=== PATIENT | female | born 1935 | race Caucasian/White ===

== ENCOUNTER 2020-03-29 11:12 | Outpatient (REF) | payer MEDICARE, SELFPAY | END 2020-03-29 11:13 | disposition home or self-care (01) | LOC: HO.WFDLDS 11:12 | PROVIDERS: Visit Provider Internal Medicine | DX: Z20.828 Contact with and (suspected) exposure to other viral communicable diseases (principal) | CPT/HCPCS: C9803; U0003 ==

== ENCOUNTER 2023-10-19 09:01 | Outpatient (AMB) | payer MEDICARE, SELFPAY ==
[2023-10-19 09:55] VITALS: BP 191/81; PULSE 60; RESP 12; O2SAT 98; BMI 25.8
--- NOTE | 2023-10-19 09:55 | MHC.PC.OV ---
Vital Signs 10/19/23 09:55 Height 4 ft 9.5 in Weight 121 lb 4 oz BMI 25.8 BP 191/81 H Blood Pressure Location Lt brachial Position Sitting Respiration 12 Pulse 60 Pulse Source Pulse Oximeter Pulse Oximetry (%) 98 Oxygen Delivery Method Room Air Intake Visit Reasons: ELLA from [facility] Intake Note: Patient is here for transfer of care from [facility] to [facility]. Patient reports she has some medications that need refills- and her medications are sent to either [facility] mail order or [facility] locally. COLONOSCOPY: years ago, incomplete FLU VACCINE: last year TETANUS: June this year I think SHINGLES: no Algology Teacher Required: No Accompanied by: Spouse Allergies No Known Allergies Allergy (Verified 10/19/23 09:57) Tobacco use date assessed: 10/19/23 Fall risk assessment: No Falls in past year Last assessed Fall Risk: 10/19/23 Dental Screening Dental Screen Date: 10/19/23 Did you have a dental visit in the last 12 months?: No Did you have a dental problem in the last 6 months where you did not have access to dental care?: No Was dental information given to patient?: Patient declined HPI HPI Comments History of Present Illness Details The patient is a 88-year-old female with a past medical history of type 2 diabetes, hypertension, osteopenia presenting for follow-up Type 2 diabetes: Controlled off medications. Eye exam is up-to-date. Follows with Dr. Aldana podiatry. Microalbumin has been negative Cardiovascular: On amlodipine 10 mg daily, lisinopril 40 mg daily, atenolol 100 mg daily, hydralazine. She had dry mouth clonidine though in prove blood pressure control. She had a stress test performed which was nondiagnostic due to underlying left bundle-branch block however declined cardiology referral Osteoporosis: On calcium and vitamin-D. She has increased left hip pain over the past few years. She takes Tylenol as needed Bone density exam is up-to-date and consistent with osteoporosis Mammo is up-to-date. She has one next month for prior abnormal with u/s f/up unremarkable ROS CONSTITUTIONAL: Denies weight loss, fever and chills. HEENT: Denies changes in vision and hearing. RESPIRATORY: Denies SOB and cough. CV: Denies palpitations and CP GI: Denies abdominal pain, nausea, vomiting and diarrhea. : Denies dysuria and urinary frequency. MSK: Denies new myalgia and joint pain. SKIN: Denies rash and pruritus. NEUROLOGICAL: Denies headache PSYCHIATRIC: Denies recent changes in mood. PHYSICAL EXAM: GENERAL: Alert and oriented x 3. NAD EYES: EOMI. Anicteric. HENT: Moist mucous membranes. No scleral icterus. No cervical lymphadenopathy. LUNGS: Clear to auscultation bilaterally. CARDIOVASCULAR: Regular rate and rhythm. No murmur. No JVD. ABDOMEN: Soft, non-tender +bs EXTREMITIES: No edema. Non-tender. SKIN: No rashes or lesions. Warm. NEUROLOGIC: No focal neurological deficits. CN II-XII grossly intact PSYCHIATRIC: Cooperative. Appropriate mood and affect [facility] Medical History History of IBS Eczema Sinusitis Diabetes History of onychomycosis Hypertension [place] of toe Surgical History History of hysterectomy History of tonsillectomy Family History Other No pertinent family history Social History Household Members: Spouse Housing: House Alcohol intake: never Patient Tobacco Use Status: Never used Tobacco e-Cigarette/Vaping Use: Never Used service: No Current occupational status: retired Cognitive needs: No Hearing needs: Yes (blocked ears) Vision needs: Yes (wears glasses) Questionnaire PHQ-9 Over the last 2 weeks, how often have you been bothered by any of the following problems? 1. Little interest or pleasure in doing things: not at all 2. Feeling down, depressed, or hopeless: not at all 3. Trouble falling or staying asleep, or sleeping too much: not at all 4. Feeling tired or having little energy: not at all 5. Poor appetite or overeating: more than half the days 6. Feeling bad about yourself - or that you are a failure or have let yourself or your family down: not at all 7. Trouble concentrating on things, such as reading the newspaper or watching television: not at all 8. Moving or speaking so slowly that other people could have noticed. Or the opposite - being so fidgety or restless that you have been moving around a lot more than usual: not at all 9. Thoughts that you would be better off or of hurting yourself in some way: not at all Total score: 2 Depression Screening Interpretation: Negative Depression Screening Done: Yes 01232 - PHQ-9 Billing: Yes Source: Developed by Drs. Mikey Medina, Yudi Matta, Kapil Nj and colleagues, with an educational cleo from [employer] Thrive Questionnaire Date Thrive assessed: 10/19/23 I am a: Patient What is your living situation today?: I have a steady place to live Within the past 12 months, did the food you bought not last and you didn't have the money to get more?: Never true Within the past 12 months, did you worry whether your food would run out before you got money to buy more?: Never true Do you have trouble paying for medicines?: No Do you have trouble getting transportation to medical appointments?: No Do you have trouble taking care of your child, family member or friend?: Yes Do you have trouble with day-to-day activities such as bathing, preparing meals, shopping, managing finances, etc.?: Yes Are you currently unemployed and looking for a job?: No Are you interested in more education?: No Please select the resources that you would like help with: Care for elder or disabled and Daily support Currently or been in a relationship where the following occur: No concerns reported THRIVE Score: 0 AUDIT C Alcohol Use Questionnaire (AUDIT-C) 1. How often do you have a drink containing alcohol?: Never 3. How often do you have six or more drinks on one occasion?: Never Total Score: 0 KATHIA-7 AMB Questionnaire KATHIA-7 Date KATHIA - 7 assessed: 10/19/23 Feeling nervous, anxious, or on edge: 1 = Several days Not being able to stop or control worryin = Several days Worrying too much about different things: 1 = Several days Trouble relaxin = Several days Being so restless that it is hard to sit still: 0 = Not at all Becoming easily annoyed or irritable: 0 = Not at all Feeling afraid as if something awful might happen: 0 = Not at all Total KATHIA-7 score (0-4 normal; 5-9 mild; 10-14 moderate; 15-21 severe): 4 Source: Developed by Drs. Mikey Medina, Yudi Matta, Kapil Nj and colleagues, with an educational cleo from [employer] KATHIA-7 Assessment Billing KATHIA-7 Assessment Tool: KATHIA-7 Assessment 13068 Physical exam (Primary Care) Vital Signs: Last Vital Signs Pulse 60 10/19/23 09:55 Resp 12 10/19/23 09:55 BP 191/81 H 10/19/23 09:55 Pulse Ox 98 10/19/23 09:55 Oxygen Delivery Method Room Air 10/19/23 09:55 BMI result Body Mass Index 25.8 Tobacco/Smoking Status: Tobacco use Status Tobacco use date assessed 10/19/23 10/19/23 10:08 Patient Tobacco Use Status Never used Tobacco 10/19/23 10:08 e-Cigarette/Vaping Use Never Used 10/19/23 10:08 PHQ-9: PHQ-9 Score PHQ-9: Total score 2 10/19/23 10:35 Depression Screening Interpretation: Negative Thrive Assessment: Date of Thrive Assessment Date Thrive assessed 10/19/23 10/19/23 10:08 Currently or been in a relationship where the following occur: No concerns reported Assessment and Plan Assessment & Plan (1) Osteoporosis: Code(s): M81.0 - Age-related osteoporosis without current pathological fracture Qualifiers: Osteoporosis type: age-related Presence of current pathological fracture: without current pathological fracture Qualified Code(s): M81.0 - Age-related osteoporosis without current pathological fracture Plan: Declines bisphosphanate therapy. continue calcium & vitamin D (2) Hypertension: Code(s): I10 - Essential (primary) hypertension Qualifiers: Hypertension type: primary hypertension Qualified Code(s): I10 - Essential (primary) hypertension Plan: Quite elevated today. increase hydralazine from 25mg BID to 50mg BID (3) Diabetes: Code(s): E11.9 - Type 2 diabetes mellitus without complications Qualifiers: Diabetes mellitus type: type 2 Diabetes mellitus halfway insulin use: without halfway use Diabetes mellitus complication status: with ophthalmic complications Diabetes mellitus complication detail: with cataract Qualified Code(s): E11.36 - Type 2 diabetes mellitus with diabetic cataract Plan: controlled. check labs Orders: Orders Complete Blood Count Auto Diff Today E11.9 - Type 2 diabetes mellitus without complications, I10 - Essential (primary) hypertension, M81.0 - Age-related osteoporosis without current pathological fracture Comprehensive Met. Panel Today E11.9 - Type 2 diabetes mellitus without complications, I10 - Essential (primary) hypertension, M81.0 - Age-related osteoporosis without current pathological fracture Hemoglobin A1c Today E11.9 - Type 2 diabetes mellitus without complications, I10 - Essential (primary) hypertension, M81.0 - Age-related osteoporosis without current pathological fracture Medications: New coenzyme Q10 (Ultra CoQ10) 75 mg PO DAILY 30 caps 0RF fluocinonide 0.05% 1 appl topical BID 30 grams 0RF lisinopril 40 mg PO DAILY 30 tabs 0RF mupirocin 2% 1 appl topical BID 22 grams 0RF lancets (Accu-Chek Softclix Lancets) As directed 100 ea 0RF hydralazine 50 mg PO BID 180 tabs 3RF blood sugar diagnostic once daily fasting 100 ea 3RF E11.9 - Type 2 diabetes mellitus without complications amlodipine 10 mg PO DAILY 30 tabs 0RF atenolol 100 mg PO DAILY 30 tabs 0RF betamethasone dipropionate 0.05% 1 appl topical BID PRN 45 grams 0RF skin irritation calcium carbonate-vitamin D3 600 mg-20 mcg (800 unit) (Caltrate 600 plus D) 1 tab PO BID 60 tabs 0RF magnesium oxide 400 mg PO DAILY 30 caps 0RF blood-glucose meter (Accu-Chek Guide Glucose Meter) As directed 1 ea 0RF blood sugar diagnostic once daily fasting 100 ea 3RF E11.9 - Type 2 diabetes mellitus without complications Coding Level of Care Code Est Pt Level 4 (36347) Diagnoses Age-related osteoporosis without current pathological fracture M81.0 Osteoporosis type: age-related Presence of current pathological fracture: without current pathological fracture Primary hypertension I10 Hypertension type: primary hypertension Type 2 diabetes mellitus with diabetic cataract, without long-term current use of insulin E11.36 Diabetes mellitus type: type 2 Diabetes mellitus halfway insulin use: without halfway use Diabetes mellitus complication status: with ophthalmic complications Diabetes mellitus complication detail: with cataract Additional Codes KATHIA-7 Assessment Billing - KATHIA-7 Assessment Tool: KATHIA-7 Assessment [id number] ([id number])
== END 2023-10-19 10:52 | disposition home or self-care (01) ==
PROVIDERS: Visit Provider Internal Medicine
DX: M81.0 Age-related osteoporosis without current pathological fracture (principal); I10 Essential (primary) hypertension; E11.36 Type 2 diabetes mellitus with diabetic cataract
CPT/HCPCS: 99214

== ENCOUNTER 2023-10-19 11:14 | Outpatient (REF) | payer MEDICARE, SELFPAY ==
[2023-10-19 13:53] LABS: MANUAL DIFF FLAG NO
[2023-10-19 13:59] LABS: Basophils Absolute Auto 0.1 X10*3/uL (0.0-0.2); Basophils Percent Auto 1.3 % (0-2); Eosinophils Absolute Auto 0.3 X10*3/uL (0.0-0.4); Eosinophils Percent Auto 5.6 % (0-4); Hematocrit 42.2 % (37.0-47.0); Hemoglobin 14.5 g/dl (12.0-16.0); Imm Gran Abs Auto 0.02 X10*3/uL (0.00-0.03); Imm Gran Pct Auto 0.4 % (0.0-0.4); Lymphocytes Absolute Auto 1.4 X10*3/uL (1.2-4.9); Lymphocytes Percent Auto 25.7 % (20-40); Mean Corpuscular HGB Conc 34.4 g/dl (31.0-35.0); Mean Corpuscular Hemoglobin 29.3 pg (27.0-33.0); Mean Corpuscular Volume 85.3 fL (80.0-98.0); Mean Platelet Volume 11.2 fL (9.4-12.3); Monocytes Absolute Auto 0.8 X10*3/uL (0.1-1.2); Monocytes Percent Auto 13.7 % (2-11); Neutrophils Percent Auto 53.3 % (45-73); Platelet Count 220 X10*3/uL (160-400); Red Blood Count 4.95 X10*6/uL (4.20-5.50); Red Cell Distribution Width 13.4 % (11.0-16.0); White Blood Count 5.5 X10*3/uL (4.8-10.8)
[2023-10-19 14:10] LABS: Alanine Aminotransferase 14 U/L (0-31); Albumin Level 4.4 g/dL (3.5-5.0); Alkaline Phosphatase 72 U/L (39-117); Anion Gap 12 (12-20); Aspartate Amino Transferase 17 U/L (5-31); Bilirubin Total 0.4 mg/dL (0.0-1.0); Blood Urea Nitrogen 13 mg/dL (9-16); Calcium 10.3 mg/dL (8.4-10.2); Carbon Dioxide 28 mmol/L (22-29); Chloride 108 mmol/L (96-108); Estimated Glomerular Filt Rate > 60; Glucose Random 70 mg/dL (60-115); Potassium 3.7 mmol/L (3.3-5.1); Sodium 144 mmol/L (135-145); Total Protein 7.5 g/dL (6.5-8.0)
[2023-10-19 14:14] LABS: Estimated Average Glucose 117 mg/dL; Hemoglobin A1c % 5.7 % (<6.0)
== END 2023-10-19 11:15 | disposition home or self-care (01) ==
LOC: HO.WFDLDS 11:14
PROVIDERS: Visit Provider Internal Medicine
DX: M81.0 Age-related osteoporosis without current pathological fracture (principal); I10 Essential (primary) hypertension; E11.9 Type 2 diabetes mellitus without complications
CPT/HCPCS: 36415; 80053; 83036; 85025

== ENCOUNTER 2024-01-06 09:36 | Outpatient (RCR) | payer MEDICARE, SELFPAY | END 2024-03-03 13:55 | disposition home or self-care (01) | LOC: HO.WCC 09:36 | PROVIDERS: PCP Internal Medicine; Visit Provider Surgery | DX: Z09 Encounter for follow-up examination after completed treatment for conditions other than malignant neoplasm (principal); I87.301 Chronic venous hypertension (idiopathic) without complications of right lower extremity; E11.9 Type 2 diabetes mellitus without complications; Z87.2 Personal history of diseases of the skin and subcutaneous tissue | CPT/HCPCS: 11042; 29580; 97597; 99212 ==

== ENCOUNTER 2024-01-31 09:37 | Outpatient (AMB) | payer MEDICARE, SELFPAY ==
[2024-01-31 09:44] VITALS: BP 148/62; PULSE 69; O2SAT 98; BMI 26.7
--- NOTE | 2024-01-31 09:48 | A.OFFPC_ITS ---
Vital Signs 01/31/24 09:44 Height 4 ft 9.5 in Weight 125 lb 6 oz BMI 26.7 BP 148/62 H Blood Pressure Location Lt brachial Position Sitting Pulse 69 Pulse Source Pulse Oximeter Pulse Oximetry (%) 98 Oxygen Delivery Method Room Air Intake Visit Reasons: PURSE SEINING HAND-Establish Care Allergies No Known Allergies Allergy (Verified 01/31/24 09:48) Tobacco use date assessed: 01/31/24 Fall risk assessment: No Falls in past year Last assessed Fall Risk: 01/31/24 Dental Screening Dental Screen Date: 01/31/24 Did you have a dental visit in the last 12 months?: No Did you have a dental problem in the last 6 months where you did not have access to dental care?: No Was dental information given to patient?: Patient declined HPI HPI Comments 2 History of Present Illness Details The patient is a 88-year-old female with a past medical history of type 2 diabetes, hypertension, osteopenia presenting for follow-up Type 2 diabetes: Controlled off medications. Eye exam is up-to-date. Follows with Dr. Bhavani Abdul podiatry. Microalbumin has been negative. Had recent cour se of antibiotics and wound care for posterior right leg wound Cardiovascular: On amlodipine 10 mg daily, lisinopril 40 mg daily, atenolol 100 mg daily, hydralazine. She had dry mouth clonidine though in prove blood pressure control. She had a stress test performed which was nondiagnostic due to underlying left bundle-branch block however declined cardiology referral Osteoporosis: On calcium and vitamin-D. Chronic hip and knee pain. She takes Tylenol as needed Bone density exam & Mammo upcoming. Requests order for [place] ROS CONSTITUTIONAL: Denies weight loss, fever and chills. HEENT: Denies changes in vision and hearing. RESPIRATORY: Denies SOB and cough. CV: Denies palpitations and CP GI: Denies abdominal pain, nausea, vomiting and diarrhea. : Denies dysuria and urinary frequency. MSK: Denies new myalgia and joint pain. SKIN: Denies rash and pruritus. NEUROLOGICAL: Denies headache PSYCHIATRIC: Denies recent changes in mood. PHYSICAL EXAM: GENERAL: Alert and oriented x 3. NAD EYES: EOMI. Anicteric. HENT: Moist mucous membranes. No scleral icterus. No cervical lymphadenopathy. LUNGS: Clear to auscultation bilaterally. CARDIOVASCULAR: Regular rate and rhythm. No murmur. No JVD. ABDOMEN: Soft, non-tender +bs EXTREMITIES: No edema. Non-tender. SKIN: Right posterior leg redness. Left posterior leg redness NEUROLOGIC: No focal neurological deficits. CN II-XII grossly intact PSYCHIATRIC: Cooperative. Appropriate mood and affect [facility] Medical History History of IBS Eczema Sinusitis Diabetes History of onychomycosis Hypertension [place] of toe Surgical History History of hysterectomy History of tonsillectomy Family History Other No pertinent family history Social History Household Members: Spouse Housing: House Alcohol intake: never Patient Tobacco Use Status: Never used Tobacco e-Cigarette/Vaping Use: Never Used service: No Current occupational status: retired Cognitive needs: No Hearing needs: Yes (blocked ears) Vision needs: Yes (wears glasses) Questionnaire PHQ-9 Over the last 2 weeks, how often have you been bothered by any of the following problems? 1. Little interest or pleasure in doing things: not at all 2. Feeling down, depressed, or hopeless: not at all 3. Trouble falling or staying asleep, or sleeping too much: not at all 4. Feeling tired or having little energy: not at all 5. Poor appetite or overeating: more than half the days 6. Feeling bad about yourself - or that you are a failure or have let yourself or your family down: not at all 7. Trouble concentrating on things, such as reading the newspaper or watching television: not at all 8. Moving or speaking so slowly that other people could have noticed. Or the opposite - being so fidgety or restless that you have been moving around a lot more than usual: not at all 9. Thoughts that you would be better off or of hurting yourself in some way: not at all Total score: 2 Depression Screening Interpretation: Negative (neg) Depression Screening Done: Yes 63999 - PHQ-9 Billing: Yes Source: Developed by Drs. Mikey Medina, YudiKapil Caballero and colleagues, with an educational cleo from [employer]. Thrive Questionnaire Date Thrive assessed: 01/31/24 I am a: Patient What is your living situation today?: I have a steady place to live Within the past 12 months, did the food you bought not last and you didn't have the money to get more?: Never true Within the past 12 months, did you worry whether your food would run out before you got money to buy more?: Never true Do you have trouble paying for medicines?: No Do you have trouble getting transportation to medical appointments?: No Do you have trouble paying your heating and electricity bill?: No Do you have trouble taking care of your child, family member or friend?: Yes Do you have trouble with day-to-day activities such as bathing, preparing meals, shopping, managing finances, etc.?: Yes Are you currently unemployed and looking for a job?: No Are you interested in more education?: No Please select the resources that you would like help with: Care for elder or disabled and Daily support Currently or been in a relationship where the following occur: No concerns reported THRIVE Score: 0 AUDIT C Alcohol Use Questionnaire (AUDIT-C) 1. How often do you have a drink containing alcohol?: Never 3. How often do you have six or more drinks on one occasion?: Never Total Score: 0 KATHIA-7 AMB Questionnaire KATHIA-7 Date KATHIA - 7 assessed: 01/31/24 Feeling nervous, anxious, or on edge: 1 = Several days Not being able to stop or control worryin = Several days Worrying too much about different things: 1 = Several days Trouble relaxin = Several days Being so restless that it is hard to sit still: 0 = Not at all Becoming easily annoyed or irritable: 0 = Not at all Feeling afraid as if something awful might happen: 0 = Not at all Total KATHIA-7 score (0-4 normal; 5-9 mild; 10-14 moderate; 15-21 severe): 4 Source: Developed by Drs. Mikey Medina, Kapil Lindsay and colleagues, with an educational cleo from [employer]. KATHIA-7 Assessment Billing KATHIA-7 Assessment Tool: KATHIA-7 Assessment [id number] Physical exam (Primary Care) Vital Signs: Last Vital Signs Pulse 69 01/31/24 09:44 BP 148/62 H 01/31/24 09:44 Pulse Ox 98 01/31/24 09:44 Oxygen Delivery Method Room Air 01/31/24 09:44 BMI result Body Mass Index 26.7 Tobacco/Smoking Status: Tobacco use Status Tobacco use date assessed 01/31/24 01/31/24 09:53 Patient Tobacco Use Status Never used Tobacco 01/31/24 09:53 e-Cigarette/Vaping Use Never Used 01/31/24 09:53 PHQ-9: PHQ-9 Score PHQ-9: Total score 2 01/31/24 11:23 Depression Screening Interpretation: Negative (neg) Thrive Assessment: Date of Thrive Assessment Date Thrive assessed 01/31/24 01/31/24 09:53 Currently or been in a relationship where the following occur: No concerns reported Results AMB Hemoglobin A1c AMB Hemoglobin A1c 5.9 % Last Edit by Zelda Calle CMA on 01/31/24 10:40 Results Reviewed Results Reviewed: Laboratory Last Values Hgb A1c (Clinic) 5.9 % (4.0-6.0) 01/31/24 10:39 Coding Level of Care Code Est Pt Level 4 (49579) Diagnoses Primary hypertension I10 Hypertension type: primary hypertension Type 2 diabetes mellitus with diabetic cataract, without long-term current use of insulin E11.36 Diabetes mellitus complication detail: with cataract Diabetes mellitus complication status: with ophthalmic complications Diabetes mellitus chcf insulin use: without chcf use Diabetes mellitus type: type 2 Age-related osteoporosis without current pathological fracture M81.0 Osteoporosis type: age-related Presence of current pathological fracture: without current pathological fracture Additional Codes KATHIA-7 Assessment Billing - KATHIA-7 Assessment Tool: KATHIA-7 Assessment 35405 ([id number]) Assessment & Plan Assessment & Plan (1) Hypertension: Code(s): I10 - Essential (primary) hypertension Category: Medical Qualifiers: Hypertension type: primary hypertension Qualified Code(s): I10 - Essential (primary) hypertension Plan: Adequately controlled on current medications (2) Diabetes: Code(s): E11.9 - Type 2 diabetes mellitus without complications Category: Medical Qualifiers: Diabetes mellitus complication detail: with cataract Diabetes mellitus complication status: with ophthalmic complications Diabetes mellitus predatory animal exterminator insulin use: without chcf use Diabetes mellitus type: type 2 Qualified Code(s): E11.36 - Type 2 diabetes mellitus with diabetic cataract Plan: Diet controlled. A1C today 5.9%. continue eye exams, podiatry (3) Osteoporosis: Code(s): M81.0 - Age-related osteoporosis without current pathological fracture Category: Medical Qualifiers: Osteoporosis type: age-related Presence of current pathological fracture: without current pathological fracture Qualified Code(s): M81.0 - Age- related osteoporosis without current pathological fracture Plan: dxa ordered Orders: Orders Hemoglobin A1c Today E11.36 - Type 2 diabetes mellitus with diabetic cataract MM screening mammo BI Today Z12.31 - Encounter for screening mammogram for malignant neoplasm of breast XR DEXA axial skeleton Today M81.0 - Age-related osteoporosis without current pathological fracture, Z12.39 - Encounter for other screening for malignant neoplasm of breast AMB Hemoglobin A1c Today Z13.9 - Encounter for screening, unspecified
== END 2024-01-31 10:47 | disposition home or self-care (01) ==
PROVIDERS: PCP Internal Medicine; Visit Provider Internal Medicine
DX: I10 Essential (primary) hypertension (principal); E11.36 Type 2 diabetes mellitus with diabetic cataract; M81.0 Age-related osteoporosis without current pathological fracture; Z13.9 Encounter for screening, unspecified

== ENCOUNTER → 2024-01-31 09:37 | Outpatient (BNVA) | payer MEDICARE, SELFPAY | PROVIDERS: Visit Provider Internal Medicine | DX: I10 Essential (primary) hypertension (principal); E11.36 Type 2 diabetes mellitus with diabetic cataract; H26.9 Unspecified cataract; M81.0 Age-related osteoporosis without current pathological fracture | CPT/HCPCS: 83036; 96127; 99212 ==

== ENCOUNTER 2024-05-08 10:58 | Outpatient (AMB) | payer MEDICARE, SELFPAY ==
--- NOTE | 2024-05-08 11:15 | A.OFFPC_ITS ---
Vital Signs 05/08/24 11:21 05/08/24 11:29 Height 4 ft 9.5 in Weight 124 lb BMI 26.4 BP 148/60 H 144/58 H Blood Pressure Location Rt brachial Rt brachial Position Sitting Sitting Pulse 63 Pulse Source Pulse Oximeter Pulse Oximetry (%) 96 Oxygen Delivery Method Room Air Intake Visit Reasons: DM Intake Note: Diabetes follow up. Ulcer right foot. Went to wound clinic. Legal Billing Specialist Required: No Allergies cephalexin Allergy (Mild, Verified 05/08/24 11:21) lightheaded Tobacco use date assessed: 01/31/24 Dental Screening Dental Screen Date: 01/31/24 HPI HPI Comments History of Present Illness Details The patient is a 88-year-old female with a past medical history of type 2 diabetes, hypertension, osteopenia presenting for follow-up Type 2 diabetes: Controlled off medications-HbA1C 5.7%. Eye exam is up-to-date. Follows with Dr. Bhavani Abdul podiatry. Microalbumin has been negative. Continues to see wound-right medial wound has healed. Cardiovascular: On amlodipine 10 mg daily, lisinopril 40 mg daily, atenolol 100 mg daily, hydralazine. She had dry mouth clonidine though in prove blood pressure control. She had a stress test performed which was nondiagnostic due to underlying left bundle-branch block however declined cardiology referral Osteoporosis: On calcium and vitamin-D. Chronic hip and knee pain. She takes Tylenol as needed Bone density exam & Mammo upcoming. ROS CONSTITUTIONAL: Denies weight loss, fever and chills. HEENT: Denies changes in vision and hearing. RESPIRATORY: Denies SOB and cough. CV: Denies palpitations and CP GI: Denies abdominal pain, nausea, vomiting and diarrhea. : Denies dysuria and urinary frequency. MSK: Denies new myalgia and joint pain. SKIN: Denies rash and pruritus. NEUROLOGICAL: Denies headache PSYCHIATRIC: Denies recent changes in mood. PHYSICAL EXAM: GENERAL: Alert and oriented x 3. NAD EYES: EOMI. Anicteric. HENT: Moist mucous membranes. No scleral icterus. No cervical lymphadenopathy. LUNGS: Clear to auscultation bilaterally. CARDIOVASCULAR: Regular rate and rhythm. No murmur. No JVD. ABDOMEN: Soft, non-tender +bs EXTREMITIES: No edema. Non-tender. SKIN: Right posterior leg redness. Left posterior leg redness NEUROLOGIC: No focal neurological deficits. CN II-XII grossly intact PSYCHIATRIC: Cooperative. Appropriate mood and affect [facility] Medical History History of IBS Eczema Sinusitis Diabetes History of onychomycosis Hypertension [place] of toe Surgical History History of hysterectomy History of tonsillectomy Family History Other No pertinent family history Social History Household Members: Spouse Housing: House Alcohol intake: never Patient Tobacco Use Status: Never used Tobacco e-Cigarette/Vaping Use: Never Used service: No Current occupational status: retired Cognitive needs: No Hearing needs: Yes (blocked ears) Vision needs: Yes (wears glasses) Questionnaire PHQ-9 Over the last 2 weeks, how often have you been bothered by any of the following problems? 1. Little interest or pleasure in doing things: not at all 2. Feeling down, depressed, or hopeless: not at all 3. Trouble falling or staying asleep, or sleeping too much: more than half the days 4. Feeling tired or having little energy: more than half the days 5. Poor appetite or overeating: several days 6. Feeling bad about yourself - or that you are a failure or have let yourself or your family down: more than half the days 7. Trouble concentrating on things, such as reading the newspaper or watching television: more than half the days 8. Moving or speaking so slowly that other people could have noticed. Or the opposite - being so fidgety or restless that you have been moving around a lot more than usual: more than half the days 9. Thoughts that you would be better off or of hurting yourself in some way: several days Total score: 12 Source: Developed by Drs. Mikey Medina, Yudi Matta, Kapil Nj and colleagues, with an educational cleo from [employer]. Thrive Questionnaire Date Thrive assessed: 01/31/24 I am a: Patient What is your living situation today?: I have a steady place to live Within the past 12 months, did the food you bought not last and you didn't have the money to get more?: Never true Within the past 12 months, did you worry whether your food would run out before you got money to buy more?: Never true Do you have trouble paying for medicines?: No Do you have trouble getting transportation to medical appointments?: No Do you have trouble paying your heating and electricity bill?: No Do you have trouble taking care of your child, family member or friend?: No Do you have trouble with day-to-day activities such as bathing, preparing meals, shopping, managing finances, etc.?: Yes Are you currently unemployed and looking for a job?: No Are you interested in more education?: No Please select the resources that you would like help with: None Currently or been in a relationship where the following occur: I choose not to a nswer THRIVE Score: 0 AUDIT C Alcohol Use Questionnaire (AUDIT-C) 1. How often do you have a drink containing alcohol?: Never Total Score: 0 KATHIA-7 AMB Questionnaire KATHIA-7 Date KATHIA - 7 assessed: 01/31/24 Feeling nervous, anxious, or on edge: 3 = Nearly every day Not being able to stop or control worryin = More than half the days Worrying too much about different things: 2 = More than half the days Trouble relaxin = More than half the days Being so restless that it is hard to sit still: 0 = Not at all Becoming easily annoyed or irritable: 2 = More than half the days Feeling afraid as if something awful might happen: 0 = Not at all Total KATHIA-7 score (0-4 normal; 5-9 mild; 10-14 moderate; 15-21 severe): 11 Source: Developed by Drs. Mikey Medina, Yudi Matta, Kapil Nj and colleagues, with an educational cleo from [employer]. Physical exam (Primary Care) Vital Signs: Last Vital Signs Pulse 63 05/08/24 11:21 BP 144/58 H 05/08/24 11:29 Pulse Ox 96 05/08/24 11:21 Oxygen Delivery Method Room Air 05/08/24 11:21 BMI result Body Mass Index 26.4 Tobacco/Smoking Status: Tobacco use Status Tobacco use date assessed 01/31/24 05/08/24 11:26 Patient Tobacco Use Status Never used Tobacco 05/08/24 11:26 e-Cigarette/Vaping Use Never Used 05/08/24 11:26 PHQ-9: PHQ-9 Score PHQ-9: Total score 12 05/08/24 11:27 Thrive Assessment: Date of Thrive Assessment Date Thrive assessed 01/31/24 05/08/24 11:26 Currently or been in a relationship where the following occur: I choose not to answer Coding Level of Care Code Est Pt Level 4 (30123) Diagnoses Type 2 diabetes mellitus with diabetic cataract, without long-term current use of insulin E11.36 Diabetes mellitus type: type 2 Diabetes mellitus residential insulin use: without residential use Diabetes mellitus complication status: with ophthalmic complications Diabetes mellitus complication detail: with cataract Primary hypertension I10 Hypertension type: primary hypertension Assessment & Plan Assessment & Plan (1) Diabetes: Code(s): E11.9 - Type 2 diabetes mellitus without complications Category: Medical Qualifiers: Diabetes mellitus type: type 2 Diabetes mellitus residential insulin use: without terminal supervisor use Diabetes mellitus complication status: with ophthalmic complications Diabetes mellitus complication detail: with cataract Qualified Code(s): E11.36 - Type 2 diabetes mellitus with diabetic cataract Plan: well controlled off medications (2) Hypertension: Code(s): I10 - Essential (primary) hypertension Category: Medical Qualifiers: Hypertension type: primary hypertension Qualified Code(s): I10 - Essential (primary) hypertension Plan: Adequate control for age. Low salt diet
[2024-05-08 11:21] VITALS: BP 148/60; PULSE 63; O2SAT 96; BMI 26.4
[2024-05-08 11:29] VITALS: BP 144/58
--- OUTSIDE RECORDS SUMMARY | 2024-05-08 15:55 | XMS_ITS | Clinical Summary ---
Author Organization [facility] Address [address] [place] [address] Care Team Providers Care Materials Clerk Name Role Phone Unavailable Primary Care Provider Unavailabl e Social History Tobacco Use Types Packs/Day Years Used Date Smoking Tobacco: Never Assessed Comments Unknown Sex and Gender Information Value Date Recorded Sex Assigned at Not on file Legal Sex Female 4:57 AM EDT Gender Identity Not on file Sexual Orientation Not on file Plan of Treatment Health Maintenance Due Date Last Done Comments DTaP/Tdap/Td (1 - Tdap) 07/16/1953 Pneumococcal 50+ years (1 of 1 - PCV) 07/16/1987 Zoster (Shingrix) (1 of 2) 07/16/1987 Bone Density 2002 RSV (1 - 1-dose 75+ series) 2012 COVID-19 Vaccine (2023-2 5 season) 2023 Influenza (#1) 2023 HPV Vaccine Aged Out No longer eligi ble based on patient's age to complete this topic Hep A Aged Out No longer eligi ble based on patient's age to complete this topic Hep B Aged Out No longer eligi ble based on patient's age to complete this topic Hib Aged Out No longer eligi ble based on patient's age to complete this topic Mammogram/Breast Imaging Discontinued Meningococcal ACWY Aged Out No longer eligible based on patient's age to complete this topic Pap Smear Discontinued Zoster (Zostavax) Discontinued
== END 2024-05-08 12:03 | disposition home or self-care (01) ==
PROVIDERS: PCP Internal Medicine; Visit Provider Internal Medicine
DX: E11.36 Type 2 diabetes mellitus with diabetic cataract (principal); I10 Essential (primary) hypertension

== ENCOUNTER → 2024-05-08 10:58 | Outpatient (BNVA) | payer MEDICARE, SELFPAY | PROVIDERS: PCP Internal Medicine; Visit Provider Internal Medicine | DX: E11.36 Type 2 diabetes mellitus with diabetic cataract (principal); I10 Essential (primary) hypertension; M85.80 Other specified disorders of bone density and structure, unspecified site | CPT/HCPCS: 83036; 96127; 99212 ==

== ENCOUNTER 2024-08-07 10:48 | Outpatient (AMB) | payer MEDICARE, SELFPAY ==
--- NOTE | 2024-08-07 11:29 | AM.OFFVISMDC ---
Intake Vital Signs 08/07/24 11:35 08/07/24 11:40 Height 4 ft 9.5 in Weight 125 lb 2 oz BMI 26.6 BP 162/58 H 148/52 H Blood Pressure Location Rt brachial Rt brachial Position Sitting Sitting Respiration 14 Pulse 64 Pulse Source Pulse Oximeter Pulse Oximetry (%) 96 Oxygen Delivery Method Room Air Intake Visit Reasons: mawv Intake Note: Medical annual wellness Aerial Tram Operator Required: No Allergies cephalexin Allergy (Mild, Verified 08/07/24 11:31) lightheaded HPI HPI Comments History of Present Illness Details The patient is a 89-year-old female with a past medical history of type 2 diabetes, hypertension, osteopenia presenting for AWV HRA reviewed. Independent ADLs. Also helps care for Care team reviewed Podiatry-Bhavani Abdul Previously wound care. Healed right medial leg lesion Type 2 diabetes: Controlled off medications-recent A1C [facility] requested. HbA1C 5.7%. Eye exam is up-to-date. Microalbumin has been negative. Continues to see wound-right medial wound has healed. Cardiovascular: On amlodipine 10 mg daily, lisinopril 40 mg daily, atenolol 100 mg daily, hydralazine 50 BID. She had dry mouth with clonidine though in prove blood pressure control. She had a stress test performed which was nondiagnostic due to underlying left bundle-branch block however declined cardiology referral. Denies chest pain, shortness of breath Osteoporosis: On calcium and vitamin-D. Chronic hip and knee pain. She takes Tylenol as needed Bone density exam & Mammo UTD ROS CONSTITUTIONAL: Denies weight loss, fever and chills. HEENT: Denies changes in vision. Left ear cerumen RESPIRATORY: Denies SOB and cough. CV: Denies palpitations and CP GI: Denies abdominal pain, nausea, vomiting and diarrhea. : Denies dysuria and urinary frequency. MSK: Denies new myalgia and joint pain. SKIN: Denies rash and pruritus. NEUROLOGICAL: Denies headache PSYCHIATRIC: Denies recent changes in mood. PHYSICAL EXAM: GENERAL: Alert and oriented x 3. NAD EYES: EOMI. Anicteric. HENT: Moist mucous membranes. No scleral icterus. No cervical lymphadenopathy. LUNGS: Clear to auscultation bilaterally. CARDIOVASCULAR: Regular rate and rhythm. No murmur. No JVD. ABDOMEN: Soft, non-tender +bs EXTREMITIES: No edema. Non-tender. SKIN: Right posterior leg redness. Left posterior leg redness NEUROLOGIC: No focal neurological deficits. CN II-XII grossly intact PSYCHIATRIC: Cooperative. Appropriate mood and affect [facility] Medical History History of IBS Eczema Sinusitis Diabetes History of onychomycosis Hypertension [place] of toe Surgical History History of hysterectomy History of tonsillectomy Family History Other No pertinent family history Social History Household Members: Spouse Housing: House Alcohol intake: never Patient Tobacco Use Status: Never used Tobacco e-Cigarette/Vaping Use: Never Used service: No Current occupational status: retired Cognitive needs: No Hearing needs: Yes (blocked ears) Vision needs: Yes (wears glasses) Questionnaire Medicare Wellness Checkup What is your age?: 80 or older What gender do you identify with?: female During the past 4 weeks, how much have you been bothered by emotional problems such as feeling anxious, depressed, irritable, sad or downhearted, and blue?: not at all During the past 4 weeks, has your physical & emotional health limited your social activities with family, friends, neighbors, or groups?: not at all During the past 4 weeks, how much bodily pain have you generally had?: no pain During the past 4 weeks, was someone available to help you if you needed & wanted help?: yes, quite a bit During the past 4 weeks, what was the hardest physical activity you could do for at least 2 minutes?: moderate Can you get to places out of walking distance without help? (For eg., can you travel alone on buses, taxis or drive your car?): Yes Can you go shopping for groceries or clothes without someone's help?: Yes Can you prepare your own meals?: Yes Can you do your housework without help?: Yes Because of any health problems, do you need the help of another person with your personal care needs such as eating, bathing, dressing or getting around the house?: No Can you handle your own money without help?: Yes During the past 4 weeks, how would you rate your health in general?: good During the past 4 weeks how have things been going for you?: pretty well Are you having difficulties driving your car?: no Do you always fasten your seat belt when you are in a car?: yes, usually During past 4 weeks, have you been bothered by the following: never: Sexual problems?, Trouble eating well?, Teeth or denture problems? and Problems using the telephone?, seldom: Falling or dizzy when standing up and sometimes: Tiredness or fatigue? Have you fallen 2 or more times in the past year?: No Are you afraid of falling?: No Are you a smoker?: no During the past 4 weeks, how many drinks of wine, beer, or other alcoholic beverages did you have?: no alcohol at all Do you exercise for about 20 minutes 3 or more times a week?: no, I usually do not exercise this much Have you been given information to help with the following?: no: Hazards in your house that might hurt you? and no: Keeping track of your medications? How often do you have trouble taking medicines the way you have been told to take them?: I always take medicine as prescribed How confident are you that you can control & manage most of your health problems?: very confident What is your race?: White Mini Mental State Exam (MMSE) Orientation What is the (year) (season) (date) (day) (month)?: year (2024), season (spring), date (2024), day () and month (July) Where are we (state) (county) (town or city) (hospital) (floor)?: state ([place]), [facility] ([place]), town or city ([place]), hospital/clinic ([place] ) and floor ([place] ) Registration Name of 3 unrelated objects clearly and slowly, then ask patient to repeat all 3 of them. (1st repeat determines score. Make sure they can repeat all three): object 1 (Ball), object 2 and object 3 (tree) Attention & Calculation (CHOOSE ONE) Spell WORLD backwards (DLROW): 5 letters Recall Ask patient to repeat the 3 items from question #3.: object 1 (flag) Language Show patient a wristwatch & ask what it is. Repeat for pencil.: watch and pencil Ask the patient to repeat the phrase 'No ifs, ands, or buts' after you.: incorrect Ask the patient to 'take a piece of paper with their right hand' 'fold paper in half' 'place paper on floor': take paper in right hand, fold paper in half and place paper on floor Print the sentence 'CLOSE YOUR EYES' on a piece. If patient actually closes eyes then score.: followed written direction Give patient a blank piece of paper & ask to write a sentence. Score if it contains a noun & verb.: sentence contains subject and verb Score Score: 26 Physical Exam Vital Signs: Last Vital Signs Pulse 64 08/07/24 11:35 Resp 14 08/07/24 11:35 BP 148/52 H 08/07/24 11:40 Pulse Ox 96 08/07/24 11:35 Oxygen Delivery Method Room Air 08/07/24 11:35 BMI result Body Mass Index 26.6 Assessment & Plan Assessment & Plan (1) Diabetes: Code(s): E11.9 - Type 2 diabetes mellitus without complications Qualifiers: Diabetes mellitus complication detail: with cataract Diabetes mellitus complication status: with ophthalmic complications Diabetes mellitus residential insulin use: without residential use Diabetes mellitus type: type 2 Qualified Code(s): E11.36 - Type 2 diabetes mellitus with diabetic cataract (2) Hypertension: Code(s): I10 - Essential (primary) hypertension Qualifiers: Hypertension type: primary hypertension Qualified Code(s): I10 - Essential (primary) hypertension (3) Osteoporosis: Code(s): M81.0 - Age-related osteoporosis without current pathological fracture Qualifiers: Osteoporosis type: age-related Presence of current pathological fracture: without current pathological fracture Qualified Code(s): M81.0 - Age-related osteoporosis without current pathological fracture Plan 89 year old for MWV. see note Blood pressure slight suboptimal but hasnt tolerated additions of medications. Diabetes is controlled off medications Quality Reporting (2019) Fall Risk Screening ([facility] 139) Last assessed Fall Risk: 08/07/24 Fall risk assessment: No Falls in past year Coding Level of Care Code Medicare Subsequent (G0439) Diagnoses Type 2 diabetes mellitus with diabetic cataract, without long-term current use of insulin E11.36 Diabetes mellitus complication detail: with cataract Diabetes mellitus complication status: with ophthalmic complications Diabetes mellitus terminal operations supervisor insulin use: without residential use Diabetes mellitus type: type 2 Primary hypertension I10 Hypertension type: primary hypertension Age-related osteoporosis without current pathological fracture M81.0 Osteoporosis type: age-related Presence of current pathological fracture: without current pathological fracture CPT Codes Advance Care Planning - Time spent: 1-15 minutes, not on file ([id number]) Advance Care Planning Date of discussion: 08/07/24 Who was present: patient and -took information to review Forms completed: None Time spent: 1-15 minutes, not on file
[2024-08-07 11:35] VITALS: BP 162/58; PULSE 64; RESP 14; O2SAT 96; BMI 26.6
[2024-08-07 11:40] VITALS: BP 148/52
--- OUTSIDE RECORDS SUMMARY | 2024-08-07 12:53 | XMS_ITS | Clinical Summary ---
Author Organization [facility] Address [address] [place] [address] Care Team Providers Care Bobbin Cleaner Name Role Phone Unavailable Primary Care Provider [...]
== END 2024-08-07 12:25 | disposition home or self-care (01) ==
LOC: HO.HMCFM 10:49
PROVIDERS: PCP Internal Medicine; Visit Provider Internal Medicine
DX: Z00.00 Encounter for general adult medical examination without abnormal findings (principal); E11.36 Type 2 diabetes mellitus with diabetic cataract; I10 Essential (primary) hypertension; M81.0 Age-related osteoporosis without current pathological fracture

== ENCOUNTER → 2024-08-07 10:48 | Outpatient (BNVA) | payer MEDICARE, SELFPAY | PROVIDERS: PCP Internal Medicine; Visit Provider Internal Medicine ==

== ENCOUNTER 2024-10-02 11:12 | Outpatient (AMB) | payer MEDICARE, SELFPAY ==
--- NOTE | 2024-10-02 11:22 | MHC.PC.OV ---
Vital Signs 10/02/24 11:32 Height 4 ft 9.5 in Weight 124 lb 8 oz BMI 26.5 BP 124/72 Blood Pressure Location Rt brachial Position Sitting Respiration 12 Pulse 69 Pulse Source Pulse Oximeter Temp 97.2 F Temp Source Oral Pulse Oximetry (%) 97 Oxygen Delivery Method Room Air Intake Visit Reasons: Discharge Follow-Up /[facility] Intake Note: [place] [facility] [place] Job Titles Required: No Allergies cephalexin Allergy (Mild, Verified 10/02/24 11:42) lightheaded Medication List - Last Reconciled 10/02/24 by Anahi Babcock, [facility]- amlodipine 10 mg PO DAILY atorvastatin 40 mg PO DAILY blood sugar diagnostic once daily fasting blood sugar diagnostic (Accu-Chek Ilzzie Plus test strips) once daily blood-glucose meter (Accu-Chek Guide Glucose Meter) As directed carvedilol 6.25 mg PO BID cholecalciferol (vitamin D3) . hydralazine 50 mg PO BID lancets (Accu-Chek Softclix Lancets) As directed lisinopril 40 mg PO DAILY magnesium oxide 400 mg PO DAILY ticagrelor mg PO vitamins A,C,N-ribs-rcqpqm 4,296 mcg-226 mg-90 mg (PreserVision AREDS) 1 cap PO BID zinc acetate PO Tobacco use date assessed: 10/02/24 Fall risk assessment: No Falls in past year Last assessed Fall Risk: 10/02/24 Dental Screening Dental Screen Date: 10/02/24 Did you have a dental visit in the last 12 months?: Yes Did you have a dental problem in the last 6 months where you did not have access to dental care?: No Was dental information given to patient?: Patient has dentist HPI HPI Comments History of Present Illness Details Here today for a Transitional Care Management Visit Discharge summary reviewed. 89 y/o F with DM, HTN admitted for NSTEMI s/p cardiac stenting 09/20/24 PCI proximal RCA, distal RCA into RPL, POBA to RFDA, PCI to mid-distal LAD ASA 81 mg lifelong Ticagrelor 90mg BID for 1 year Echo shows grade 2 diastolic dysfunction LVEF 55-60%, ^ LA pressures, mild MR, borderling pulm htn, A1c 6.1% LDL 86 Bradycardic atenolol d/c and started coreg 6.25 mg BID Started statin atorvastatin 40mg QD Stopped Ca citrate Admission Date: 09/19/24 Discharge Date: 09/21/24 Hospital: [facility] Date of interactive contact with Nurse Navigator: as documented in chart Pending diagnostic tests/treatments: none Pending consults: none DME: no PT/OT/CONTACT LENS BLOCKER: no Referrals: Cardiac rehab Medications reconciled & updated. During todays TCM visit, the d/c summary was reviewed, along with the need for or follow-up on pending diagnostic tests and treatments, as necessary interaction with other health rn progressive care unit who will assume or reassume care of the beneficiary?s system-specific problems was done or is being worked on, education was provided to the beneficiary, family, guardian, and/or caregiver, referrals to establish or re-establish and arrange needed community resources we completed, assistance in scheduling required follow-up with community providers and services & finally updated medication list given to patient/caregiver Here w/ Tracy (dtr) Since return home has been feeling a little tired otherwise good Denies cp, sob, falls Taking all meds as directed Did not start Card rehab did not think she needed to as she is Ind ADLs Edu provided today about this Next cards fu October Does not weigh self daily Edu about dCHF today wears compression, swelling in lower ext is stable does her best to limit Na+ has a life life Exam Awake alert NAD Scleras nonicteric bilat RRR LS CTAB Trace edema BLE Mood and affect apprropriate. Plan Refills sent on all meds Start cardiac rehab fu w/ Cards as scheduled Weigh self QD. Report wt changes. RTO as scheduled to fu with PCP, sooner PRN PFSH Medical History History of IBS Eczema Sinusitis Diabetes History of onychomycosis Hypertension [place] of toe Surgical History History of hysterectomy History of tonsillectomy Family History Other No pertinent family history Social History Household Members: Spouse Housing: House Alcohol intake: never Patient Tobacco Use Status: Never used Tobacco e-Cigarette/Vaping Use: Never Used service: No Current occupational status: retired Cognitive needs: No Hearing needs: Yes (blocked ears) Vision needs: Yes (wears glasses) Questionnaire Thrive Questionnaire Date Thrive assessed: 05/08/24 I am a: Patient What is your living situation today?: I have a steady place to live Within the past 12 months, did the food you bought not last and you didn't have the money to get more?: Never true Within the past 12 months, did you worry whether your food would run out before you got money to buy more?: Never true Do you have trouble paying for medicines?: No Do you have trouble getting transportation to medical appointments?: No Do you have trouble paying your heating and electricity bill?: No Do you have trouble taking care of your child, family member or friend?: No Do you have trouble with day-to-day activities such as bathing, preparing meals, shopping, managing finances, etc.?: Yes Are you currently unemployed and looking for a job?: No Are you interested in more education?: No Please select the resources that you would like help with: None Currently or been in a relationship where the following occur: I choose not to answer THRIVE Score: 0 KATHIA-7 AMB Questionnaire KATHIA-7 Date KATHIA - 7 assessed: 01/31/24 Source: Developed by Drs. Mikey Medina, Yudi Matta, Kapil Nj and colleagues, with an educational cleo from [employer]. Physical exam (Primary Care) Vital Signs: Last Vital Signs Temp 97.2 F 10/02/24 11:32 Pulse 69 10/02/24 11:32 Resp 12 10/02/24 11:32 BP 124/72 10/02/24 11:32 Pulse Ox 97 10/02/24 11:32 Oxygen Delivery Method Room Air 10/02/24 11:32 BMI result Body Mass Index 26.5 Tobacco/Smoking Status: Tobacco use Status Tobacco use date assessed 10/02/24 10/02/24 11:27 Patient Tobacco Use Status Never used Tobacco 10/02/24 11:22 e-Cigarette/Vaping Use Never Used 10/02/24 11:22 Thrive Assessment: Date of Thrive Assessment Date Thrive assessed 05/08/24 10/02/24 11:22 Currently or been in a relationship where the following occur: I choose not to answer Coding Level of Care Code TCM High MDM <= 14 days Complex EM visit Add On G2211 Diagnoses Hospital discharge follow-up Z09 Coronary artery disease status post coronary stent insertion I25.10; Z95.5 Chronic diastolic congestive heart failure I50.32 Heart failure chronicity: chronic Assessment & Plan Assessment & Plan (1) Hospital discharge follow-up: Code(s): Z09 - Encounter for follow-up examination after completed treatment for conditions other than malignant neoplasm Category: Medical (2) Coronary artery disease status post coronary stent insertion: Onset Date: 09/20/24 Code(s): I25.10 - Atherosclerotic heart disease of [place] coronary artery without angina pectoris; Z95.5 - Presence of coronary angioplasty implant and graft Category: Surgical (3) Diastolic CHF: Code(s): I50.30 - Unspecified diastolic (congestive) heart failure Category: Medical Qualifiers: Heart failure chronicity: chronic Qualified Code(s): I50.32 - Chronic diastolic (congestive) heart failure Plan . Medications: New carvedilol 6.25 mg PO BID 180 tabs 2RF ticagrelor 90 mg PO BID 180 tabs 2RF atorvastatin 40 mg PO DAILY 90 tabs 2RF Patient Instructions: Take all meds as directed Weigh self daily If you gain more than 3 lbs overnight or 5 lbs in 1 week, contact Cards Limit Na+ Wear compression stockings
[2024-10-02 11:32] VITALS: BP 124/72; PULSE 69; RESP 12; TEMP 36.2; O2SAT 97; BMI 26.5
--- OUTSIDE RECORDS SUMMARY | 2024-10-02 12:50 | XMS_ITS | Clinical Summary ---
Author Organization [facility] Address [address] [place] [address] Care Team Providers Care Sales Operations Manager Name Role Phone Unavailable Primary Care Provider [...] COVID-19 Vaccine (2023-2 5 season) 2023 Influenza (Season Ended) 2024 HPV Vaccine Aged Out No longer eligi [...]
== END 2024-10-02 12:08 | disposition home or self-care (01) ==
LOC: HO.HMCFM 11:13
PROVIDERS: PCP Internal Medicine; Visit Provider Nurse Practitioner Family
DX: I25.10 Atherosclerotic heart disease of native coronary artery without angina pectoris (principal); Z09 Encounter for follow-up examination after completed treatment for conditions other than malignant neoplasm; Z95.5 Presence of coronary angioplasty implant and graft; I50.32 Chronic diastolic (congestive) heart failure

== ENCOUNTER → 2024-10-02 11:12 | Outpatient (BNVA) | payer MEDICARE, SELFPAY | PROVIDERS: PCP Internal Medicine; Visit Provider Nurse Practitioner Family | DX: Z09 Encounter for follow-up examination after completed treatment for conditions other than malignant neoplasm (principal); I25.10 Atherosclerotic heart disease of native coronary artery without angina pectoris; I50.32 Chronic diastolic (congestive) heart failure; Z95.5 Presence of coronary angioplasty implant and graft | CPT/HCPCS: 99212 ==

== ENCOUNTER 2025-01-18 08:57 | Outpatient (RCR) | payer MEDICARE, SELFPAY | END 2025-01-18 16:28 | disposition home or self-care (01) | LOC: HO.WCC 08:57 | PROVIDERS: PCP Internal Medicine; Visit Provider Surgery Surgical Oncology | DX: L84 Corns and callosities (principal); I87.2 Venous insufficiency (chronic) (peripheral); Z09 Encounter for follow-up examination after completed treatment for conditions other than malignant neoplasm | CPT/HCPCS: 99213 ==

== ENCOUNTER 2025-01-19 09:16 | Outpatient (REF) | payer MEDICARE, SELFPAY ==
--- OUTSIDE RECORDS SUMMARY | 2025-01-15 15:00 | XMS_ITS | Encounter Summary ---
Author Organization [facility] Address [address] [place] [address] Phone Care Team Providers Care Control Systems Engineer Name Role Phone Nancy Hayward MD Primary Care Provider + [phone] Reason for Visit * Reason Comments Dysuria Sx x off and on a fe w weeks. Urgency, denies frequency, pain. Encounter Details Date Type Department Care Team (Late st Contact Info) Description 01/15/2025 3:00 PM EDT Office Visit [facility] at [address] [address] Michela Stephen, SLATE TRIMMER[address] [address] [email or web address] Allergic rhinitis, unspecified seasonality, unspecified trigger (Primary Dx); Pelvic pain Social History Tobacco Use Types Packs/Day Years Used Date Smoking Tobacco: Never Assessed Education Answer Date Recorded Are you interested in more education? Not on milly e 12/05/2023 Are you concerned about learning? Not on file 12/05/2023 No 12/05/2023 No 12/05/2023 Digital Access Answer Date Recorded No 12/05/2023 No 12/05/2023 Reliable internet access at home? Not on file 12/05/2023 Device with a working camera? Not on file Comments Unknown Sex and Gender Information Value Date Recorded Sex Assigned at Not on file Legal Sex Female 9:59 AM EDT Gender Identity Not on file Sexual Orientation Not on file documented as of this encounter Last Filed Vital Signs Vital Sign Reading Time Taken Comments Blood Pressure 152/67 01/15/2025 3:10 PM EDT Pulse 74 01/15/2025 3:10 PM EDT Temperature 36.8 C (98.2 F) 01/15/2025 3:10 PM EDT Respiratory Rate 18 01/15/2025 3:10 PM EDT Oxygen Saturation 99% 01/15/2025 3:10 PM EDT Inhaled Oxygen Concentration - - Weight - - Height - - Body Mass Index - - documented in this encounter Patient Instructions * Patient Instructions* Michela Stephen FNP - 01/15/2025 3:00 PM EDT REST DRINK PLENTY OF FLUIDS, STAY WELL HYDRATED RECHECK IF WORSENING OR NO BETTER 2-3 DAYS. WE WILL CALL YOU IF THERE IS BACTERIA GROWING IN YOUR CULTURE. IF WORSENING SYMPTOMS SUCH FEVER, BACK PAIN, ABDOMINAL PAIN, VOMITING, UNABLE TO URINATE - GO DIRECTLY TO THE ED. TYLENOL ALWAYS SEEK TREATMENT IF EXPERIENCING SYMPTOMS OF A URINARY TRACT INFECTION. DELAYING CAN CAUSE DAMAGE TO YOUR KIDNEYS AND SERIOUS INFECTION. Seasonal allergies: *Flonase daily *Claritin 10 mg every morning or other non drowsy antihistamine Benadryl 50 mg at bed time if still having symptoms. Can cause drowsiness Naphcon A, Pataday or other allergy eye drops Tylenol for discomfort Stay well hydrated Pollen counts are high. Keep your windows closed Vacuum and dust daily. Change your clothes after spending time outside Wash your hands frequently and avoid rubbing your eyes. Consider seeing an crowning inspector if over the counter products do not help your symptoms. * Attachments The following attachments cannot be sent through Care Everywhere. * Pelvic Pain (Greek) * Allergic Rhinitis (PCOI) * Allergies: Seasonal (Greek) documented in this encounter Progress Notes * Michela Stephen FNP - 01/15/2025 3:00 PM EDT Images from the original note were not included. Subjective: Patient ID: La Nena Rees is a 89 y.o. female. Patient here with her daughter. Patient and daughter state patient complained of some lower pelvic pain and some back pain on and off for a couple weeks. None now. Denies having burning urgency. Patient states she also wants a COVID test because she has had a lot of nasal congestion watery eyes for a month. Review of Systems Constitutional: Negative for fatigue and fever. HENT: Positive for congestion and rhinorrhea. Negative for ear pain and sore throat. Eyes: Positive for itching. Negative for pain. Respiratory: Negative for cough and shortness of breath. Cardiovascular: Negative for chest pain. Gastrointestinal: Negative for abdominal pain, constipation, diarrhea, nausea and vomiting. Genitourinary: Negative for dysuria, flank pain, frequency and pelvic pain. Neurological: Negative for dizziness, light-headedness and headaches. Hematological: Negative for adenopathy. All other systems reviewed and are negative. Skin: Negative for color change. Musculoskeletal: Negative for joint pain, back pain and neck pain. Vitals: 01/15/25 1510 BP: (!) 152/67 Pulse: 74 Resp: 18 Temp: 36.8 ??C (98.2 ??F) SpO2: 99% Objective: Physical Exam Vitals and nursing note reviewed. Constitutional: General: She is not in acute distress. Appearance: Normal appearance. She is not ill-appearing, toxic-appearing or diaphoretic. HENT: Head: Normocephalic and atraumatic. Right Ear: Tympanic membrane, ear canal and external ear normal. Left Ear: Tympanic membrane, ear canal and external ear normal. Nose: Congestion present. No rhinorrhea. Mouth/Throat: Mouth: Mucous membranes are moist. Pharynx: Oropharynx is clear. Eyes: General: Right eye: No discharge. Left eye: No discharge. Extraocular Movements: Extraocular movements intact. Conjunctiva/sclera: Conjunctivae normal. Pupils: Pupils are equal, round, and reactive to light. Cardiovascular: Rate and Rhythm: Normal rate and regular rhythm. Pulses: Normal pulses. Heart sounds: Normal heart sounds. Pulmonary: Effort: Pulmonary effort is normal. No respiratory distress. Breath sounds: Normal breath sounds. No wheezing or rales. Abdominal: General: There is no distension. Palpations: Abdomen is soft. Tenderness: There is no abdominal tenderness. There is no right CVA tenderness, left CVA tendernessor guarding. Musculoskeletal: General: Normal range of motion. Cervical back: Normal range of motion and neck supple. Lymphadenopathy: Cervical: No cervical adenopathy. Skin: General: Skin is warm and dry. Coloration: Skin is not pale. Findings: No erythema or rash. Neurological: General: No focal deficit present. Mental Status: She is alert and oriented to person, place, and time. Mental status is at baseline. Psychiatric: Mood and Affect: Mood normal. Behavior: Behavior normal. Thought Content: Thought content normal. Judgment: Judgment normal. Results for orders placed or performed in visit on 01/15/25 POCT Urine Dipstick (Automated) Result Value Ref Range COLOR Yellow TURBIDITY Slightly Cloudy GLUCOSE, POCT Negative Negative KETONE, POCT Negative Negative OCCULT BLOOD, POCT Negative Negative SPECIFIC GRAVITY, POCT <1.005 1.001 - 1.030 ALBUMIN, POCT Negative Negative Bili Negative Negative Urobilinogen 0.2 <1.0 NITRITE, POCT Negative Negative PH, POCT 6.0 5.0 - 8.0 WBC SCREEN, POCT Negative Negative Procedure: Procedures Assessment/Plan: Diagnosis Plan 1. Allergic rhinitis, unspecified seasonality, unspecified trigger 2. Pelvic pain Urine Culture Assessment and Plan: Well-appearing patient here with her daughter complaining of some pelvic pain and back pain on and off for a week or 2. Daughter states they did a test strip at home that was positive. States did notwipe appropriately at home. Patient denies having any urgency frequency or burning on urination. Patient states what she really wants this to be tested for COVID because she has had some nasal congestion and itchy watery eyes for a month. Discussed that symptoms sound more like allergies than COVID. Discussed treatment for allergies Discussed and agreed on pharm and non pharm plan of care. POCT urine normal Culture sent Recheck if worsening or no better with PCP * Gerald Hannah MD - 01/15/2025 3:00 PM EDT Subject Line: Provider Attestation I have reviewed the notes, assessments, and/or procedures performed by FRANCOIS Garcia, I concur with her/his documentation of La Nena Rees. documented in this encounter Plan of Treatment Not on file documented as of this encounter Procedures Procedure Name Priority Date/Time Associated Diagnosis Comments URINE CULTURE Routine 01/15/2025 3:54 PM EDT Pelvic pain POCT URINE DIPSTICK Routine 01/15/2025 3 :28 PM EDT documented in this encounter Results * (ABNORMAL) Urine Culture (01/15/2025 3:54 PM EDT) Special Requests None 01/15/2025 3:54 PM EDT [facility] Urine Culture 10,000 to 100,000 colony forming units per mL MIXED LAKESHA (3 OR MORE COLONY TYPES) Culture indicates contamination . Please resubmit if necessary.(A) 01/17/2025 9:38 AM EDT [facility] Urine (Urine) 01/15/2025 3:5 4 PM EDT 01/15/2025 5:09 PM EDT Comment:CLEAN CATCH~CC Michela Stephen [facility] MICROBIOLOGY - [facility]AL [facility] Final Result [address] [address] * POCT Urine Dipstick (Automated) (01/15/2025 3:28 PM EDT) COLOR Yellow [facility] TURBIDITY Slightly Cloudy [facility] GLUCOSE, POCT Negative Negative [facility] KETONE, POCT Negative Negative [facility] OCCULT BLOOD, POCT Negative Negative [facility] SPECIFIC GRAVITY, POCT <1.005 1.001 - 1.030 [facility] ALBUMIN, POCT Negative Negative [facility] Bili Negative Negative [facility] Urobilinogen 0.2 <1.0 [facility] NITRITE, POCT Negative Negative [facility] PH, POCT 6.0 5.0 - 8.0 [facility] WBC SCREEN, POCT Negative Negative [facility] 01/15/2025 3:28 PM EDT 01/15/2025 3:31 PM EDT us Michela Stephen SLATE TRIMMER POINT OF CARE TEST ORDERABL ES Final Result [facility] [address] [address], [place] [phone] documented in this encounter Visit Diagnoses Diagnosis Allergic rhinitis, unspecified seasonality, unspecified trigger- Primary Pelvic pain documented in this encounter Care Teams Control Systems Engineer Relationship Specialty Start Date End Date Nancy Hayward MD PCP - General Internal Medicine 12/05/23 documented as of this encounter Additional Source Comments The information contained in this document represents components of the legal health record. It is not the complete legal health record.[facility]
--- OUTSIDE RECORDS SUMMARY | 2025-01-19 09:46 | XMS_ITS | Clinical Summary ---
Author Organization [facility] Address [address] [place] [address] Phone Care Team Providers Care Chemical Processing Laborer Name Role Phone Nancy Hayward MD Primary Care Provider Allergies Active Allergy Reactions Criticality Noted Date Comments Cephalexin Hives 06/12/2024 Pollen Extracts 01/15/2025 Medications amLODIPine (NORVASC) 10 MG tablet 09/19/2023 Active atenolol (TENORMIN) 100 MG tablet 09/19/2023 Active ACCU-CHEK VAL PLUS Strp test strips TEST ONCE DAILY (E11.36) 10/20/2023 Active hydrALAZINE (APRESOLINE) 25 MG tablet Take 1 tablet by mouth 2 (two) times a day. 09/06/2023 Active hydrALAZINE (APRESOLINE) 50 MG tablet Take 1 tablet by mouth 2 (two) times a day. 10/19/2023 Active aspirin 81 MG EC tablet Take 81 mg by mouth. 09/21/2024 Active carvedilol (COREG) 6.25 MG tablet Take 6.25 mg by mouth. 09/21/2024 Active lisinopril (PRINIVIL,ZESTRI L) 40 MG tablet Take 1 tablet by mouth every morning. 11/08/2024 Active rosuvastatin (CRESTOR) 20 MG tablet Take 1 tablet by mouth every morning. 12/13/2024 Active ticagrelor (BRILINTA) 90 mg Tab Take 90 mg by mouth. 09/21/2024 Active ascorbic acid, vitamin C, (VITAMIN C) 500 MG tablet Take 500 mg by mouth daily. Active calcium carbonate-vitami n D3 1,250 mg (500 mg elemental)-400 units per tablet Take 1 tablet by mouth daily. Active coenzyme Q10 100 mg capsule Take 100 mg by mouth daily. Active Active Problems Problem Noted Date Diagnosed Date Cellulitis of right lower extremity 12/05/2023 Encounters Date Type Department Care Team Description 01/15/2025 3:00 PM EDT Office Visit [facility] [address] [address] Michela Stephen FNP Allergic rhinitis, unspecified seasonality, unspecified trigger (Primary Dx); Pelvic pain from Last 3 Months Immunizations Immunization Administration Dates Next Due COVID-19 (Pre-02/01) Pfizer Vaccine, Bivalent 05/15/2022 COVID-19 Pfizer Comirnaty Vaccine 01/01/2023 INFLUENZA, SPLIT VIRUS, TRIV ALENT W/ PRESERVATIVE IM 01/21/2022,02/26/2016,02/04/2015,01/18,01/09/2013,12/28/2011,01/19/2011 ,12/21/2008,01/13/2008 Influenza High-Dose Quadriva lent Preservative Free IM 03/15/2023,01/10/2020 Influenza High-Dose Trivalen t Preservative Free IM 01/14/2024,01/21/2018 Influenza Quadrivalent Adjuv anted Preservative Free IM 01/27/2021 Influenza Quadrivalent MDCK w/Preservative IM 03/02/2017 Pneumococcal conjugate PCV13 07/26/2014 Pneumococcal polysaccharide PPSV23 01/13/2008, RSV Vaccine (monovalent, adjuvanted) 03/15/2023 Td (adult),2 Lf Tetanus Toxo id, PF, Adsorbed 06/13/2009,02/12/2000 Tdap 06/14/2023 Social History Tobacco Use Types Packs/Day Years [...] on file Sexual Orientation Not on file Last Filed Vital Signs Vital Sign Reading Time Taken Comments Blood Pressure 152/67 01/15/2025 3:10 PM EDT Pulse 74 01/15/2025 3:10 PM EDT Temperature 36.8 C (98.2 F) 01/15/2025 3:10 PM EDT Respiratory Rate 18 01/15/2025 3:10 PM EDT Oxygen Saturation 99% 01/15/2025 3:10 PM EDT Inhaled Oxygen Concentration - - Weight 55.8 kg (123 lb) 12/05/2023 10:23 AM EDT Height 149.9 cm (4' 11 ) 12/05/2023 10:23 AM EDT Body Mass Index 24.84 12/05/2023 10:23 AM EDT Plan of Treatment Health Maintenance Due Date Last Done Comments CREATININE LEVEL 1937 POTASSIUM LEVEL 1937 DEPRESSION SCREENING 1949 ZOSTER VACCINES (1 of 2) 07/16/1987 OSTEOPOROSIS SCREENING INITIAL (ONE-TIME) 2002 INFLUENZA VACCINE (#1) 2024 , 03/15/2023, 01/21/2022, Additional history exists COVID-19 VACCINE ( season) 2024 01/14/2024, 04/24/2023, 01/01/2023, Additional history exists Adult Td,Tdap Booster 06/13/2033 06/14/2023 , 06/13/2009, 02/12/2000 PNEUMOCOCCAL VACCINES (50+ years) Completed 07/26/2014, 01/13/2008, 02/12/2000 RSV VACCINE Completed 03/15/2023 HEPATITIS A VACCINES Aged Out No long er eligible based on patient's age to complete this topic HIB VACCINES Aged Out No longer eligi ble based on patient's age to complete this topic MENINGOCOCCAL VACCINES (ACWY) Aged Out No longer eligible based on patient's age to complete this topic MENINGOCOCCAL VACCINES (B) Aged Out N o longer eligible based on patient's age to complete this topic Medical Devices Not on file Procedures Procedure Name Priority Date/Time Associated Diagnosis Comments URINE CULTURE Routine 01/15/2025 3:54 PM EDT Pelvic pain POCT URINE DIPSTICK Routine 01/15/2025 3 :28 PM EDT from Last 3 Months Results * (ABNORMAL) Urine Culture (01/15/2025 3:54 PM EDT) Special Requests None 01/15/2025 3:54 PM EDT [facility] Urine Culture 10,000 to 100,000 colony forming units per mL MIXED LAKESHA (3 OR MORE COLONY TYPES) Culture indicates contamination . Please resubmit if necessary.(A) 01/17/2025 9:38 AM EDT [facility] Urine (Urine) 01/15/2025 3:5 4 PM EDT 01/15/2025 5:09 PM EDT Comment:CLEAN CATCH~CC Michela Stephen OUTPATIENT SURGERY RN MICROBIOLOGY - GENERAL ORDJoycelyn DOSHI Final Result [facility] [address] [place], [place] [id number] * POCT Urine Dipstick (Automated) (01/15/2025 3:28 PM EDT) COLOR Yellow [facility] TURBIDITY Slightly Cloudy [facility] GLUCOSE, POCT Negative Negative [facility] KETONE, POCT Negative Negative [facility] OCCULT BLOOD, POCT Negative Negative [facility] SPECIFIC GRAVITY, POCT <1.005 1.001 - 1.030 [facility] ALBUMIN, POCT Negative Negative [facility] Bili Negative Negative [facility] Urobilinogen 0.2 <1.0 [facility] NITRITE, POCT Negative Negative [facility] PH, POCT 6.0 5.0 - 8.0 [facility] WBC SCREEN, POCT Negative Negative [facility] 01/15/2025 3:28 PM EDT 01/15/2025 3:31 PM EDT Michela Stephen OUTPATIENT SURGERY RN POINT OF CARE TEST ORDERABL ES Final Result Performing Organization Address City/State/[facility] Co de Phone Number [facility] [address] [place] [address], [place] [phone] from Last 3 Months Insurance MEDICARE PART A & B Member Subscriber Plan / Payer (Ef fective 2003-Present) Name:La Nena Rees Member ID:[id number] Relation to Subscriber:Self Name:La Nena Rees Subscriber ID:[id number] Payer ID:[id number] Group ID:Not on file Type:Medicare Address: [employer] [facility] [place] [place] [address] [employer] MED[employer] SUPPLEMENT MEDICARE PART A & B [employer] MED[employer] SUPPLEMENT MEDICARE PART A & B [employer] MED[employer] SUPPLEMENT MEDICARE PART A & B [employer] MED[employer] SUPPLEMENT MEDICARE PART A & B [employer] MED[employer] SUPPLEMENT MEDICARE PART A & B [facility] MEDEX SUPPLEMENT Care Teams Chemical Processing Laborer Relationship Specialty Start Date End Date Nancy Hayward MD PCP - General Internal Medicine 12/05/23 Additional Source Comments The information contained in this document represents components of the legal health record. It is not the complete legal health record.[facility]
[2025-01-19 11:00] LABS: MANUAL DIFF FLAG NO
[2025-01-19 11:13] LABS: Hematocrit 38.9 % (37.0-47.0); Hemoglobin 13.4 g/dl (12.0-16.0); Imm Gran Abs Auto 0.02 X10*3/uL (0.00-0.03); Imm Gran Pct Auto 0.3 % (0.0-0.4); Lymphocytes Absolute Auto 1.2 X10*3/uL (1.2-4.9); Mean Corpuscular HGB Conc 34.4 g/dl (31.0-35.0); Mean Corpuscular Hemoglobin 28.2 pg (27.0-33.0); Mean Corpuscular Volume 81.9 fL (80.0-98.0); NRBC Abs Auto 0.000 X10*3/uL (0.0-0.012); NRBC Pct Auto 0.0 /100WBC (0.0-0.2); Platelet Count 256 X10*3/uL (160-400); Red Blood Count 4.75 X10*6/uL (4.20-5.50); White Blood Count 6.3 X10*3/uL (4.8-10.8)
[2025-01-19 11:42] LABS: Alanine Aminotransferase 15 U/L (0-31); Albumin Level 4.5 g/dL (3.5-5.0); Alkaline Phosphatase 63 U/L (39-117); Anion Gap 14 (12-20); Aspartate Amino Transferase 30 U/L (5-31); Blood Urea Nitrogen 13 mg/dL (9-16); Calcium 9.8 mg/dL (8.4-10.2); Carbon Dioxide 24 mmol/L (22-29); Chloride 107 mmol/L (96-108); Cholesterol 110 mg/dL (<200); Estimated Glomerular Filt Rate > 60; HDL Cholesterol 38 mg/dL (>40); Potassium 3.9 mmol/L (3.3-5.1); Sodium 141 mmol/L (135-145); Total Protein 7.0 g/dL (6.5-8.0); Triglycerides 130 mg/dL (<150)
[2025-01-19 11:54] LABS: Microalbum/Creatinine Ratio Ur 17.0 ug/mg cr (<30)
== END 2025-01-19 09:17 | disposition home or self-care (01) ==
LOC: HO.WFDLDS 09:16
PROVIDERS: Visit Provider Internal Medicine
DX: E11.36 Type 2 diabetes mellitus with diabetic cataract (principal); D72.821 Monocytosis (symptomatic); I10 Essential (primary) hypertension
CPT/HCPCS: 80053; 80061; 82043; 82570; 83036; 84443; 85025

== ENCOUNTER 2025-02-05 11:12 | Outpatient (AMB) | payer MEDICARE, SELFPAY ==
--- NOTE | 2025-02-05 11:31 | MHC.PC.OV ---
Vital Signs 02/05/25 11:34 Height 4 ft 9.5 in Weight 126 lb 4 oz BMI 26.8 BP 142/60 H Blood Pressure Location Lt brachial Position Sitting Respiration 16 Pulse 71 Pulse Source Pulse Oximeter Temp 97.9 F Temp Source Oral Pulse Oximetry (%) 98 Oxygen Delivery Method Room Air Intake Visit Reasons: f/up diabetes BP 1/2 h Intake Note: diabetes and bp Extras Casting Director Required: No Allergies cephalexin Allergy (Mild, Verified 02/05/25 11:32) lightheaded Tobacco use date assessed: 02/05/25 Fall risk assessment: No Falls in past year Last assessed Fall Risk: 02/05/25 Dental Screening Dental Screen Date: 02/05/25 Did you have a dental visit in the last 12 months?: No Did you have a dental problem in the last 6 months where you did not have access to dental care?: No Was dental information given to patient?: Patient has dentist HPI HPI Comments History of Present Illness Details The patient is a 89-year-old female with a past medical history of type 2 diabetes, hypertension, NSTEMI, s/p PCI osteopenia presenting for follow up Type 2 diabetes: Controlled off medications. HbA1C 6%. Eye exam is up-to-date. Microalbumin has been negative. Podiatry-Bhavani Abdul. Previously wound care. Healed right medial leg lesion. Some rash LE itchy CV: on coreg, lisinopril, hydralazine, amlodipine, brilinta, ASA, atorvastatin. NSTEMI s/p cardiac stenting 09/20/24 ASA 81 mg lifelong Ticagrelor 90mg BID for 1 year. Echo shows grade 2 diastolic dysfunction LVEF 55-60% Osteoporosis: On calcium and vitamin-D. Chronic hip and knee pain. She takes Tylenol as needed Bone density exam & Mammo UTD ROS CONSTITUTIONAL: Denies weight loss, fever and chills. HEENT: Denies changes in vision. Left ear cerumen RESPIRATORY: Denies SOB and cough. CV: Denies palpitations and CP GI: Denies abdominal pain, nausea, vomiting and diarrhea. : Denies dysuria and urinary frequency. MSK: Denies new myalgia and joint pain. SKIN: Denies rash and pruritus. NEUROLOGICAL: Denies headache PSYCHIATRIC: Denies recent changes in mood. PHYSICAL EXAM: GENERAL: Alert and oriented x 3. NAD EYES: EOMI. Anicteric. HENT: Moist mucous membranes. No scleral icterus. No cervical lymphadenopathy. LUNGS: Clear to auscultation bilaterally. CARDIOVASCULAR: Regular rate and rhythm. No murmur. No JVD. ABDOMEN: Soft, non-tender +bs EXTREMITIES: No edema. Non-tender. SKIN: Right posterior leg redness. Left posterior leg redness NEUROLOGIC: No focal neurological deficits. CN II-XII grossly intact PSYCHIATRIC: Cooperative. Appropriate mood and affect [facility] Medical History History of IBS Eczema Sinusitis Diabetes History of onychomycosis Hypertension Ralph of toe Surgical History History of hysterectomy History of tonsillectomy Family History Other No pertinent family history Social History (Updated 02/05/25 @ 11:34 by Valdo Alvarez MA) Household Members: Spouse Housing: House Alcohol intake: never Patient Tobacco Use Status: Never used Tobacco e-Cigarette/Vaping Use: Never Used service: No Current occupational status: retired Cognitive needs: No Hearing needs: Yes (blocked ears) Vision needs: Yes (wears glasses) Questionnaire Thrive Questionnaire Date Thrive assessed: 05/08/24 I am a: Patient What is your living situation today?: I have a steady place to live Within the past 12 months, did the food you bought not last and you didn't have the money to get more?: Never true Within the past 12 months, did you worry whether your food would run out before you got money to buy more?: Never true Do you have trouble paying for medicines?: No Do you have trouble getting transportation to medical appointments?: No Do you have trouble paying your heating and electricity bill?: No Do you have trouble taking care of your child, family member or friend?: No Do you have trouble with day-to-day activities such as bathing, preparing meals, shopping, managing finances, etc.?: Yes Are you currently unemployed and looking for a job?: No Are you interested in more education?: No Please select the resources that you would like help with: None Currently or been in a relationship where the following occur: I choose not to answer THRIVE Score: 0 KATHIA-7 AMB Questionnaire KATHIA-7 Date KATHIA - 7 assessed: 01/31/24 Source: Developed by Drs. Mikey Medina, Yudi Matta, Kapil Nj and colleagues, with an educational cleo from [employer] ([employer]). Physical exam (Primary Care) Vital Signs: Last Vital Signs Temp 97.9 F 02/05/25 11:34 Pulse 71 02/05/25 11:34 Resp 16 02/05/25 11:34 BP 142/60 H 02/05/25 11:34 Pulse Ox 98 02/05/25 11:34 Oxygen Delivery Method Room Air 02/05/25 11:34 BMI result Body Mass Index 26.8 Tobacco/Smoking Status: Tobacco use Status Tobacco use date assessed 02/05/25 02/05/25 11:37 Patient Tobacco Use Status Never used Tobacco 02/05/25 11:37 e-Cigarette/Vaping Use Never Used 02/05/25 11:37 Thrive Assessment: Date of Thrive Assessment Date Thrive assessed 05/08/24 02/05/25 11:37 Currently or been in a relationship where the following occur: I choose not to answer Coding Level of Care Code Est Pt Level 4 (40153) Complex EM visit Add On G2211 Diagnoses Type 2 diabetes mellitus with diabetic cataract, without long-term current use of insulin E11.36 Diabetes mellitus type: type 2 Diabetes mellitus senior care insulin use: without termite helper use Diabetes mellitus complication status: with ophthalmic complications Diabetes mellitus complication detail: with cataract Coronary artery disease status post coronary stent insertion I25.10; Z95.5 Age-related osteoporosis without current pathological fracture M81.0 Osteoporosis type: age-related Presence of current pathological fracture: without current pathological fracture Assessment & Plan Assessment & Plan (1) Diabetes: Code(s): E11.9 - Type 2 diabetes mellitus without complications Category: Medical Qualifiers: Diabetes mellitus type: type 2 Diabetes mellitus senior care insulin use: without termite helper use Diabetes mellitus complication status: with ophthalmic complications Diabetes mellitus complication detail: with cataract Qualified Code(s): E11.36 - Type 2 diabetes mellitus with diabetic cataract (2) Coronary artery disease status post coronary stent insertion: Onset Date: 09/20/24 Code(s): I25.10 - Atherosclerotic heart disease of kake coronary artery without angina pectoris; Z95.5 - Presence of coronary angioplasty implant and graft Category: Surgical (3) Osteoporosis: Code(s): M81.0 - Age-related osteoporosis without current pathological fracture Category: Medical Qualifiers: Osteoporosis type: age-related Presence of current pathological fracture: without current pathological fracture Qualified Code(s): M81.0 - Age-related osteoporosis without current pathological fracture Plan 89 year old female presenting for follow up CAD-no angina. Blood pressure borderline. Has cardiology follow up. Diabetes is well controlled through diet. continue eye, podiatry Labs ordered. Follow up four months Orders: Orders Hemoglobin A1c 4 Months E11.36 - Type 2 diabetes mellitus with diabetic cataract, I10 - Essential (primary) hypertension, I25.10 - Atherosclerotic heart disease of kake coronary artery without angina pectoris, Z95.5 - Presence of coronary angioplasty implant and graft Varicella IgG Antibody 02/05/25 Z13.0 - Encounter for screening for diseases of the blood and blood-forming organs and certain disorders involving the immune mechanism, Z13.228 - Encounter for screening for other metabolic disorders, Z13.29 - Encounter for screening for other suspected endocrine disorder Comprehensive Met. Panel 4 Months E11.36 - Type 2 diabetes mellitus with diabetic cataract, I10 - Essential (primary) hypertension, I25.10 - Atherosclerotic heart disease of kake coronary artery without angina pectoris, Z95.5 - Presence of coronary angioplasty implant and graft Lipid Panel 4 Months E11.36 - Type 2 diabetes mellitus with diabetic cataract, I10 - Essential (primary) hypertension, I25.10 - Atherosclerotic heart disease of kake coronary artery without angina pectoris, Z95.5 - Presence of coronary angioplasty implant and graft TSH reflex Free T4 4 Months E11.36 - Type 2 diabetes mellitus with diabetic cataract, I10 - Essential (primary) hypertension, I25.10 - Atherosclerotic heart disease of kake coronary artery without angina pectoris, Z95.5 - Presence of coronary angioplasty implant and graft Vitamin B12 and Folate 02/05/25 G62.9 - Polyneuropathy, unspecified Referrals Dermatology Referral L30.9 - Dermatitis, unspecified Medications: New Accu-Chek Lizzie Plus test strp (blood sugar diagnostic) Once daily 100 ea 3RF NS E11.36 - Type 2 diabetes mellitus with diabetic cataract prednisone 20 mg PO DAILY 5 tabs 0RF clobetasol 0.05% 1 appl topical BID PRN 60 grams 1RF leg rash 2 weeks
[2025-02-05 11:34] VITALS: BP 142/60; PULSE 71; RESP 16; TEMP 36.6; O2SAT 98; BMI 26.8
--- OUTSIDE RECORDS SUMMARY | 2025-02-05 14:20 | XMS_ITS | Clinical Summary ---
Author Organization [facility] Address [address] [id number] Care Team Providers Care Cardiovascular Sonographer Name Role Phone Unavailable Primary Care Provider [...] - 1-dose 75+ series) 2012 COVID-19 Vaccine (2024-2 6 season) 2024 Influenza (#1) 2024 HPV Vaccine (No Doses Required) Completed Hep A Aged Out No longer eligi [...]
--- OUTSIDE RECORDS SUMMARY | 2025-02-05 14:20 | XMS_ITS | Clinical Summary ---
Author Organization [facility] Address [address] [place] [address] Phone Care Team Providers Care Easement Man Name Role Phone Nancy Hayward MD Primary Care Provider [phone] Allergies Active Allergy Reactions Criticality Noted Date [...] Office Visit [facility] [address] [address] Michela Stephen FNP Allergic rhinitis, unspecified seasonality, [...] Requests None 01/15/2025 3:54 PM EDT [facility] Urine Culture 10,000 to 100,000 colony forming units per mL MIXED LAKESHA (3 OR MORE COLONY TYPES) Culture indicates contamination . Please resubmit if necessary.(A) 01/17/2025 9:38 AM EDT [facility] Urine (Urine) 01/15/2025 3:5 4 PM EDT 01/15/2025 5:09 PM EDT Comment:CLEAN CATCH~CC Michela Stephen CLINICAL CARE LEADER MICROBIOLOGY - GENERAL ORDJoycelyn DOSHI Final Result [facility] [address] [place], [place] [id number] * POCT Urine Dipstick (Automated) (01/15/2025 3:28 PM EDT) COLOR Yellow [facility] TURBIDITY Slightly Cloudy [facility] GLUCOSE, POCT Negative Negative [facility] KETONE, POCT Negative Negative [facility] OCCULT BLOOD, POCT Negative Negative [facility] SPECIFIC GRAVITY, POCT <1.005 1.001 - 1.030 [facility] ALBUMIN, POCT Negative Negative [facility] Bili Negative Negative [facility] Urobilinogen 0.2 <1.0 [facility] NITRITE, POCT Negative Negative [facility] PH, POCT 6.0 5.0 - 8.0 [facility] WBC SCREEN, POCT Negative Negative [facility] 01/15/2025 3:28 PM EDT 01/15/2025 3:31 PM EDT Michela Stephen CLINICAL CARE LEADER POINT OF CARE TEST ORDERABL ES Final Result Performing Organization Address City/State/[facility] Co de Phone Number [facility] [address] [place] [address], [place] [phone] from Last 3 Months Insurance MEDICARE PART A & B [employer] MEDEX SUPPLEMENT MEDICARE PART A & B [employer] MED[employer] SUPPLEMENT MEDICARE PART A & B [employer] MEDEX SUPPLEMENT MEDICARE PART A & B [employer] MEDEX SUPPLEMENT MEDICARE PART A & B [employer] MEDEX SUPPLEMENT MEDICARE PART A & B [facility] MEDEX SUPPLEMENT Care Teams Easement Man Relationship Specialty Start Date End Date Nancy Hayward MD PCP - General Internal Medicine 12/05/23 Additional Source Comments The information contained in this document represents components of the legal health record. It is not the complete legal health record.[facility]
== END 2025-02-05 12:18 | disposition home or self-care (01) ==
LOC: HO.HMCFM 11:13
PROVIDERS: PCP Internal Medicine; Visit Provider Internal Medicine
DX: E11.36 Type 2 diabetes mellitus with diabetic cataract (principal); I25.10 Atherosclerotic heart disease of native coronary artery without angina pectoris; Z95.5 Presence of coronary angioplasty implant and graft; M81.0 Age-related osteoporosis without current pathological fracture

== ENCOUNTER → 2025-02-05 11:12 | Outpatient (BNVA) | payer MEDICARE, SELFPAY | PROVIDERS: PCP Internal Medicine; Visit Provider Internal Medicine | DX: E11.36 Type 2 diabetes mellitus with diabetic cataract (principal); H26.9 Unspecified cataract; I25.10 Atherosclerotic heart disease of native coronary artery without angina pectoris; M81.0 Age-related osteoporosis without current pathological fracture; I10 Essential (primary) hypertension; I25.2 Old myocardial infarction; Z79.82 Long term (current) use of aspirin; Z79.899 Other long term (current) drug therapy | CPT/HCPCS: 99212 ==